=== PATIENT | female | born 1970 | race Two or more races ===

== ENCOUNTER 2019-09-05 22:33 | Emergency (ER) | payer OTHER ==
[~2019-09-05] VITALS: Ht 177.8 cm; Wt 61.2 kg
--- NOTE | 2019-09-05 22:35 | NUR ---
BIB RA 49 YEAR OLD FEMALE C/O ABDOMINAL PAIN WITH N/V/D. ALERT AND ORIENTED X3, BREATHING EVEN AND UNLABORED WITH NO DISTRESS NOTED. SKIN INTACT. WAITING TO BE SEEN BY
[2019-09-05] MEDS ORDERED: ONDANSETRON HCL/PF 4 MG/2 ML VIAL ONE (22:56)
--- NOTE | 2019-09-05 22:58 | NUR ---
URINE COLLECTED SENT TO LAB
--- NOTE | 2019-09-05 23:00 | NUR ---
ADDENDUM: Intravenous End Time Documentation: Normal saline 1 liter (IV-WO) : start time: 2300 PM ; end time: 0000 AM: IV site: RAC #C 20 Port # 1
[2019-09-05 23:06] LABS: APPEARANCE,URINE Clear (CLEAR); BILIRUBIN,URINE Negative (NEGATIVE); BLOOD, URINE Trace-intact Ery/uL (NEGATIVE); COLOR,URINE Yellow (YELLOW); KETONES,URINE Trace (NEGATIVE); LEUKOCYTE ESTERASE ,URINE Trace (NEGATIVE); NITRITE, URINE Negative (NEGATIVE); PH,URINE 8.5 (5.0-8.0); PROTEIN,URINE Negative (NEGATIVE); UGLUCOSE Negative (NEGATIVE); UROBILINOGEN,URINE 0.2 EU/dL (0.2)
[2019-09-05] MEDS: ONDANSETRON HCL/PF 4 MG/2 ML VIAL IVP ONE (23:21)
[2019-09-05] MEDS: IV NS 0.9% 1,000 ML BAG IV ONE (23:21)
[2019-09-05 23:24] LABS: BACTERIA,URINE Rare /HPF (None Seen); RBC,URINE 0-2 /HPF (0-2); SQUAMOUS EPITHELIAL CELL,UR Few /HPF (None Seen)
[2019-09-05 23:29] LABS: BASOPHILS % (AUTO) 0.6 % (0.0-2.0); EOSINOPHILS % (AUTO) 0.1 % (0.0-6.0); HEMATOCRIT 45 % (33-45); HEMOGLOBIN 14.6 g/dL (11.5-14.8); LYMPHOCYTES # (AUTO) 0.2 /CMM (0.8-4.8); LYMPHOCYTES % (AUTO) 3.2 % (20.0-44.0); MEAN CORPUSCULAR HGB CONC 33 g/dl (31.0-36.0); MEAN CORPUSCULAR VOLUME 91 fL (82-100); MONOCYTES # (AUTO) 0.7 /CMM (0.1-1.30); NEUTROPHILS # (AUTO) 5.1 /CMM (1.8-8.9); NEUTROPHILS % (AUTO) 85.1 % (43.0-81.0); PLATELET COUNT (AUTO) 247 /CMM (150-450)
[2019-09-05] MEDS ORDERED: LIDOCAINE VISCOUS 2% UD 15 ML UDC ONE (23:36)
[2019-09-05] MEDS ORDERED: MAG HYDROX/AL HYDROX/SIMETH 30 ML UDC ONE (23:37)
[2019-09-05] MEDS: LIDOCAINE VISCOUS 2% UD 15 ML UDC MM ONE (23:38)
[2019-09-05] MEDS: MAG HYDROX/AL HYDROX/SIMETH 30 ML UDC PO ONE (23:38)
--- NOTE | 2019-09-05 23:48 | NUR ---
ENDORSED TO JENIFFER TO CONTINUE JESSICA
[2019-09-06 00:06] LABS: CALCIUM, SERUM 9.1 mg/dL (8.5-10.1); CREATININE 0.8 mg/dL (0.6-1.3); POTASSIUM 3.3 mmol/L (3.5-5.1)
[2019-09-06 00:17] LABS: ALBUMIN 3.8 g/dL (3.4-5.0); BILIRUBIN,DIRECT 0.1 mg/dL (0.0-0.2); BILIRUBIN,TOTAL 0.4 mg/dL (0.2-1.0); TOTAL PROTEIN, SERUM 7.6 g/dL (6.4-8.2)
--- NOTE | 2019-09-06 01:01 | NUR ---
Patient discharged to home in stable condition. Written and verbal after care instructions given. Patient verbalizes understanding of instruction.IV removed. Catheter intact and site benign. Pressure and 4x4 applied to site. No bleeding noted. Pt ambulatory with a steady gait
[2019-09-06 01:13] VITALS: BP 117/73
== END 2019-09-06 01:05 | disposition home or self-care (01) ==
LOC: ER 22:49
DX: R10.33 Periumbilical pain (principal); R11.2 Nausea with vomiting, unspecified; R19.7 Diarrhea, unspecified
CPT/HCPCS: 36415; 74176; 80048; 80076; 81001; 83690; 85025; 85730; 96361; 96374; 99284; J2405; J7030; 81000-TC